=== PATIENT | female | born 1945 | race Caucasian/White ===

== ENCOUNTER → 2024-07-10 16:03 | Outpatient (REF) | payer MEDICARE, OTHER, SELFPAY ==
[2024-07-10 17:19] LABS: % Basophils 0.9 % (0-2); % Immature Granulocytes 0.1 % (0-0.5); % Lymphocytes 16.7 % (20.5-51.1); % Neutrophils 69.3 % (42.2-75.2); Absolute Basophils 0.1 10^3/uL (0-0.2); Absolute Eosinophils 0.4 10^3/uL (0-0.7); Absolute Lymphocytes 1.2 10^3/uL (1.2-3.4); Absolute Monocytes 0.6 10^3/uL (0.1-0.6); Absolute Neutrophils 4.8 10^3/uL (1.4-6.5); Hematocrit 38.4 % (37.0-47.0); Mean Corp Hgb Conc. 31.3 g/dL (33.0-37.0); Mean Corpuscular Hgb 30.8 pg (27.0-31.0); Mean Corpuscular Volume 98.5 fL (81.0-99.0); Mean Platelet Volume 9.4 fL (7.4-10.4); Nucleated Red Blood Cells % 0 %; Platelet Count 254 10^3/uL (130-400); Red Cell Dist. Width 12.9 % (11.5-14.5)
== END ==
LOC: CLAB 16:03
PROVIDERS: ATTENDING PHYSICIAN Student in an Organized Health Care Education/Training Program
DX: K92.1 Melena (principal)
CPT/HCPCS: 36415; 85025

== ENCOUNTER 2024-07-20 07:55 | Emergency (ER) | payer MEDICARE, OTHER, SELFPAY ==
[2024-07-20 07:57] VITALS: BP 121/73
[2024-07-20 08:23] LABS: % Basophils 0.7 % (0-2); % Eosinophils 4.9 % (0-6); % Immature Granulocytes 0.1 % (0-0.5); % Lymphocytes 16.5 % (20.5-51.1); % Neutrophils 68.8 % (42.2-75.2); Absolute Basophils 0.1 10^3/uL (0-0.2); Absolute Eosinophils 0.3 10^3/uL (0-0.7); Absolute Lymphocytes 1.1 10^3/uL (1.2-3.4); Absolute Monocytes 0.6 10^3/uL (0.1-0.6); Absolute Neutrophils 4.6 10^3/uL (1.4-6.5); Hematocrit 33.8 % (37.0-47.0); Mean Corp Hgb Conc. 32.5 g/dL (33.0-37.0); Mean Corpuscular Hgb 30.9 pg (27.0-31.0); Mean Corpuscular Volume 94.9 fL (81.0-99.0); Nucleated Red Blood Cells % 0 %; Platelet Count 186 10^3/uL (130-400); Red Blood Cell Count 3.56 10^6/uL (4.20-5.40); Red Cell Dist. Width 12.5 % (11.5-14.5); White Blood Cell Count 6.7 10^3/uL (4.8-10.8)
--- NOTE | 2024-07-20 08:34 | ED.GENMED ---
History of Present Illness
General
Chief Complaint: Rectal Bleeding
Time Seen by Provider: 07/20/24 08:33
History of Present Illness
History of Present Illness:
TIME OF INITIAL ENCOUNTER:
HPI: Patient presents due to rectal bleeding. BRBPR intermittently for about a week, no longer on aspirin, no anticoagulation, no abd pain. Is scheduled to see GI for an office visit in [place] (reports normal colonoscopy there 5yrs ago; used to
live in [place]). Worse bleeding today. Very well appearing. She does say that she has had a mucoid type of appearance of loose stool.
EXAM:
GENERAL: Well appearing in no distress
HEENT: Moist oral mucosa
CARDIOVASCULAR: No murmurs, normal heart rate, regular rhythm, No chest wall tenderness
PULMONARY: No respiratory distress, breath sounds are clear and equal
ABDOMEN: Soft with no peritoneal signs, no tenderness, nearly empty rectal vault however there is a scant amount of red blood noted that was heme positive, very small external hemorrhoids with no obvious signs of bleeding
NEUROLOGIC: Excellent strength all extremities, no coordination deficits
PSYCHIATRIC: Appropriate mental status, normal insight and judgement
EXTREMITIES: Nontender, no edema, moves all extremities equally
SKIN: No rash, no lesions
NUMBER AND COMPLEXITY OF PROBLEMS ADDRESSED AT THE ENCOUNTER
� Chronic conditions affecting care: High blood pressure, has had bladder sling
� Acute Exacerbation and/or Progression of Chronic Illness: This is an acute but worsening problem
� Differential Diagnosis includes: Internal hemorrhoids, external hemorrhoids, diverticulosis, highly doubt upper GI bleed
AMOUNT AND/OR COMPLEXITY OF DATA TO BE REVIEWED AND ANALYZED
� I performed an independent evaluation of and my interpretation is:
EKG:
CT:
X-rays:
Laboratory Studies: White count 6.7, hemoglobin 11.0, BUN 23, creatinine 1.1
Other:
� Review of other/old records: I reviewed records, hemoglobin on 07/10/2024 was 12.0; had acute appendicitis in February 2022
� Clinical information was obtained by an independent historian: I spoke to the daughter at bedside
� Prescriptions/Medications Considered but not given:
� Further testing considered but not performed: No clear indication for imaging as she has no pain, white count normal
RISK OF COMPLICATIONS AND/OR MORBIDITY OR MORTALITY OF PATIENT MANAGEMENT
� Social determinants of health affecting care:
� Discussion with other providers: I discussed case with Dr. Solis, on-call GI, recommends outpatient management as long as BUN and creatinine are normal.
� Escalation of care including admission/observation vs risk of discharge considered: Stable vitals. Hgb 11.0 (was 12.0 07/10/2024). She was concerned b/c bleeding worsened today, so she came here. The patient has follow-up in
[facility] on 07/31/2024 for an office visit with her GI doctor.
ANY OTHER UPDATES:
Prior to discharge, I reassessed patient. No significant changes or any additional concerns.
Past History
Past History
ED Past Medical History: HTN
ED Past Surgical History: Urological (Bladder sling)
Social History
Tobacco: Non-smoker
Alcohol: Occasional
Personal:
Living: alone
Phy Exam
Physical Exam
Physical Exam:
See HPI
Course
Orders/Labs/Results
Orders:
Orders
07/20/24 08:05
Complete Blood Count/With Diff Urgent
Comprehensive Metabolic Panel Urgent
Abnormal Lab Results
07/20/24
08:05
RBC 3.56 L 10^6/uL
(4.20-5.40)
Hgb 11.0 L g/dL
(12.0-16.0)
Hct 33.8 L %
(37.0-47.0)
MCHC 32.5 L g/dL
(33.0-37.0)
Absolute Lymphs (auto) 1.1 L 10^3/uL
(1.2-3.4)
Lymphocytes % 16.5 L %
(20.5-51.1)
BUN 23 H mg/dl
(7-17)
Creatinine 1.1 H mg/dL
(0.6-1.0)
07/20/24 08:05
07/20/24 08:05
Vital Signs
Initial and Last Documented VS:
Initial Vital Signs
Temp Pulse Resp BP Pulse Ox
36.8 C 76 18 121/73 98
07/20/24 07:57 07/20/24 07:57 07/20/24 07:57 07/20/24 07:57 07/20/24 07:57
Last Documented Vital Signs
Temp Pulse Resp BP Pulse Ox
36.8 C 75 16 124/77 98
07/20/24 07:57 07/20/24 09:13 07/20/24 09:13 07/20/24 09:13 07/20/24 09:13
*Critical Care Note
Total Time (30-74mins, 75-104mins- exclusive of procedures): Not Applicable
ED Attending Note
-
Portions of this chart may have been created with voice recognition software.� Occasional wrong word or��sound alike� substitutions may have occurred due to the inherent limitations of voice recognition software.
Discharge Plan
Departure
Patient Disposition: Home (Routine Discharge)
Date of Disposition: 07/20/24
Time of Disposition: 09:01
Patient with high blood pressure during this ER visit?: Yes
Discharge Problem:
Bright red rectal bleeding
Instructions: Gastrointestinal Bleeding (DC), BLOOD PRESSURE
Prescriptions:
No Action
olmesartan-hydrochlorothiazide [Benicar HCT] 20-12.5 mg Tablet
1 tab PO DAILY
aspirin 81 mg Capsule
81 mg PO DAILY
acetaminophen [acetaminophen] 325 mg tablet
650 mg PO Q4HPRN PRN (Reason: mild pain) Qty: 1 0RF
oxycodone-acetaminophen [oxycodone-acetaminophen] 5-325 mg tablet
1 tab PO Q4HPRN PRN (Reason: moderate to severe pain) Qty: 5 0RF
ibuprofen 200 mg tablet
200 - 400 mg PO Q6HPRN PRN (Reason: moderate pain) Qty: 1 0RF
Referrals:
Karen Solis, DO [Active] - As needed
UNKNOWN - PT DOES,NOT KNOW [Family Provider] -
Activity Restrictions/Additional Instructions:
Your hemoglobin today is normal at 11.0. I discussed case with Dr. Solis, on-call GI. She recommends outpatient follow-up. I have given you her contact information. She also recommends that you have blood work through your primary care doctor
in about a week. Return here if worse or other concerns.
Interventions
Interventions:
*Risk Screen - Suicide Last Done: 07/20/24 07:57
*General Assessment Last Done: 07/20/24 07:57
*Neglect/Abuse Screening Last Done: 07/20/24 07:57
ED- Fall Risk Assessment Last Done: 07/20/24 08:47
*ED COVID-19 Vaccine History Last Done: 07/20/24 08:47
*Nursing Disposition Last Done: 07/20/24 09:13
QJ-Zvdikh-Mnkjpemflp Assessment Last Done: 07/20/24 08:47
ED- Cardiac Assessment Last Done: 07/20/24 08:47
ED- Pulmonary Assessment Last Done: 07/20/24 08:47
Discharge Date and Time
Discharge Date/Time: 07/20/24 09:28
Print Language: LUXEMBOURGER
[2024-07-20 08:37] LABS: ALT (SGPT) 18 U/L (0-35); AST (SGOT) 24 U/L (14-36); Albumin 3.9 g/dl (3.5-5.0); Alkaline Phosphatase 65 U/L (38-126); Blood Urea Nitrogen 23 mg/dl (7-17); Calcium 8.5 mg/dl (8.4-10.2); Carbon Dioxide 29 mmol/L (22-30); Chloride 105 mmol/L (98-107); Glucose 96 mg/dl (70-99); Sodium 142 mmol/L (135-145); Total Bilirubin 0.3 mg/dl (0.2-1.3); Total Protein 6.6 g/dl (6.3-8.2)
[2024-07-20 09:13] VITALS: BP 124/77
== END 2024-07-20 09:28 | disposition home or self-care (01) ==
LOC: EMR 07:55
PROVIDERS: Emergency Medicine; EMERGENCY PHYSICIAN Emergency Medicine
DX: K62.5 Hemorrhage of anus and rectum (principal); I10 Essential (primary) hypertension
CPT/HCPCS: 99283; 80053; 85025

== ENCOUNTER 2024-07-21 17:15 | Emergency (ER) | payer MEDICARE, OTHER, SELFPAY ==
[2024-07-21 17:22] VITALS: BP 156/81
--- NOTE | 2024-07-21 17:22 | ED.GENMED ---
ED Provider Triage
<Orestes Wilkins PA-C - Last Filed: 07/21/24 17:23>
-
Patient seen by provider in Triage?: Seen in Triage
Attestation: A medical screening examination has been initiated by a qualified medical provider. Based on the assessment performed at this time, it has been determined that an emergent medical condition may exist and the patient has been informed
that further medical evaluation and possible additional diagnostic testing may be needed.
HPI: 78-year-old female presenting to the ER for evaluation of stiff neck With this morning around 3 AM. Seen in this emergency department yesterday for GI bleeding. Did not have the stiff neck yesterday while in the ER. Denies any trauma. No
focal weakness or numbness.
GENERAL: Alert , in no apparent distress
EYE: No visual abnormalities.
NECK: Trachea midline
ENT: No visible abnormalities.
LUNGS: No acute respiratory distress
NEUROLOGICAL: Alert and oriented
SKIN: Skin intact. No visible changes.
MUSCULOSKELETAL: Moving extremities normally
PSYCH: Normal and appropriate interaction.
This is a medical evaluation conducted in person to initiate diagnostic evaluation and provide initial therapeutics. Please see further documentation by the treating clinician.
History of Present Illness
<Orestes Wilkins PA-C - Last Filed: 07/21/24 17:23>
General
Chief Complaint: Musculo-Skeletal Complaint
Time Seen by Provider: 07/21/24 22:42
<Josiah Kwon MD - Last Filed: 07/22/24 15:12>
General
Source: patient
Exam Limitations: none
Nursing documentation reviewed up to this point in time: agreed with
History of Present Illness
History of Present Illness:
Patient presents to ED secondary to severe left-sided neck pain rating up to her head, which woke the patient up from sleep last night. Denies blurred vision. Denies dizziness. Denies nausea or vomiting. Denies loss of sensation or weakness.
Denies difficulty with swallowing. Denies recent injury. Of note, couple of days ago, patient did notice 'discomfort' along the left side of her neck. Denies previous history of similar symptoms.
Past History
<Orestes Wilkins PA-C - Last Filed: 07/21/24 17:23>
Past History
ED Past Medical History: HTN
ED Past Surgical History: Urological (Bladder sling)
Social History
Tobacco: Non-smoker
Alcohol: Occasional
Personal:
Living: alone
Review of Systems
<Josiah Kwon MD - Last Filed: 07/22/24 15:12>
Review of Systems
Allergies reviewed?: Yes
All Other Systems: ROS reviewed and negative except as documented in HPI and ROS
Constitutional: Reports no symptoms
ABD/GI: Reports no symptoms
: Reports no symptoms
Musculoskeletal: Reports neck pain; Denies back pain
Skin: Reports no symptoms
Neurological: Reports headache; Denies dizzy, weakness or numbness
Phy Exam
<Josiah Kwon MD - Last Filed: 07/22/24 15:12>
Physical Exam
Physical Exam:
Physical Exam
General: mild painful distress, not acutely ill. afebrile
Head: nc/at. eomi
Neck: supple. no midline tenderness. mild paracervical tenderness, L>R, at level of C6-7
Heart: s1/s2 regular rate and rhythm, no murmur. equal radial pulses.
Lungs: no acute respiratory distress. clear bilaterally
Abdomen: normal bowel sounds. not tender.
Neuro: alert and oriented x 3. no focal neurological deficits. normal speech.
Skin: no rash
Psychiatric: well kept. interactive and cooperative
Extremities: no edema. no calf tenderness
Course
<Orestes Wilkins PA-C - Last Filed: 07/21/24 17:23>
Orders/Labs/Results
Orders:
Orders
07/21/24 21:48
CT Head W/o Iv Contrast Urgent
Comment:
Reason For Exam: headache
Cervical Spine wo Contrast CT [CT Cervical Spine W/o Iv Contr] Urgent
Comment:
Reason For Exam: neck stiffness
07/22/24 00:12
Acetaminophen [Tylenol] 650 mg PO NOW STA
Dexamethasone Pf [Decadron] 10 mg PO NOW STA
Tramadol HCl [Ultram] 50 mg PO NOW STA
Vital Signs
Initial and Last Documented VS:
Initial Vital Signs
Temp Pulse Resp BP Pulse Ox
98.9 F 95 18 156/81 98
07/21/24 17:22 07/21/24 17:22 07/21/24 17:22 07/21/24 17:22 07/21/24 17:22
Last Documented Vital Signs
Temp Pulse Resp BP Pulse Ox
99.7 F 86 18 124/79 97
07/21/24 21:40 07/22/24 00:25 07/22/24 00:25 07/22/24 00:25 07/22/24 00:25
<Josiah Kwon MD - Last Filed: 07/22/24 15:12>
Orders/Labs/Results
Orders:
Orders
07/21/24 21:48
CT Head W/o Iv Contrast Urgent
Comment:
Reason For Exam: headache
Cervical Spine wo Contrast CT [CT Cervical Spine W/o Iv Contr] Urgent
Comment:
Reason For Exam: neck stiffness
07/22/24 00:12
Acetaminophen [Tylenol] 650 mg PO NOW STA
Dexamethasone Pf [Decadron] 10 mg PO NOW STA
Tramadol HCl [Ultram] 50 mg PO NOW STA
Vital Signs
Initial and Last Documented VS:
Initial Vital Signs
Temp Pulse Resp BP Pulse Ox
98.9 F 95 18 156/81 98
07/21/24 17:22 07/21/24 17:22 07/21/24 17:22 07/21/24 17:22 07/21/24 17:22
Last Documented Vital Signs
Temp Pulse Resp BP Pulse Ox
99.7 F 86 18 124/79 97
07/21/24 21:40 07/22/24 00:25 07/22/24 00:25 07/22/24 00:25 07/22/24 00:25
<Josiah Kwon MD - Last Filed: 07/22/24 15:12>
MDM/Problems Addressed
MDM/Problems Addressed:
CT head/cervical spine: No acute findings.
Patient reports improvement in symptoms after treatment. Patient otherwise remains afebrile and neurologically intact. History and exam consistent with likely nonspecific neck pain, likely secondary to cervical nerve impingement with radiation,
and associated spasm. Patient will be discharged home in stable condition, with recommendation to follow-up with PCP for reevaluation, including potential MRI as an outpatient.
<Josiah Kwon MD - Last Filed: 07/22/24 15:12>
*Critical Care Note
Total Time (30-74mins, 75-104mins- exclusive of procedures): Not Applicable
ED Attending Note
<Orestes Wilkins PA-C - Last Filed: 07/21/24 17:23>
-
Portions of this chart may have been created with voice recognition software.� Occasional wrong word or��sound alike� substitutions may have occurred due to the inherent limitations of voice recognition software.
Discharge Plan
Departure
Patient Disposition: Home (Routine Discharge)
Date of Disposition: 07/22/24
Time of Disposition: 00:58
Patient with high blood pressure during this ER visit?: Yes
Discharge Problem:
Cervical radiculopathy at C6
Instructions: Radiculopathy of the neck and back (including sciatica) - Discharge instructions
Prescriptions:
New
methylprednisolone [Medrol (Abhinav)] 4 mg tablets,dose pack
4 mg PO DAILY Qty: 21 0RF
tramadol 50 mg tablet
50 mg PO Q8H PRN (Reason: Pain) Qty: 14 0RF
No Action
olmesartan-hydrochlorothiazide [Benicar HCT] 20-12.5 mg Tablet
1 tab PO DAILY
aspirin 81 mg Capsule
81 mg PO DAILY
acetaminophen [acetaminophen] 325 mg tablet
650 mg PO Q4HPRN PRN (Reason: mild pain) Qty: 1 0RF
oxycodone-acetaminophen [oxycodone-acetaminophen] 5-325 mg tablet
1 tab PO Q4HPRN PRN (Reason: moderate to severe pain) Qty: 5 0RF
ibuprofen 200 mg tablet
200 - 400 mg PO Q6HPRN PRN (Reason: moderate pain) Qty: 1 0RF
Referrals:
Jordyn Clay MD [Family Provider] -
Activity Restrictions/Additional Instructions:
As discussed, please follow-up with your primary care physician for reevaluation, including potential MRI neck as an outpatient, if symptoms persist. In the meantime, please continue to apply warm compress/ice pack to your neck, along with
discussed medications. Your prescription has been sent electronically to [facility] pharmacy in [place].
Interventions
Interventions:
*Risk Screen - Suicide Last Done: 07/21/24 17:22
*General Assessment Last Done: 07/21/24 17:22
*Neglect/Abuse Screening Last Done: 07/21/24 17:22
ED- Fall Risk Assessment Last Done: 07/22/24 01:04
*ED COVID-19 Vaccine History Last Done: 07/21/24 17:22
*Nursing Disposition Last Done: 07/22/24 01:04
ED-Musculoskeletal Assessment Last Done: 07/21/24 21:42
Discharge Date and Time
Discharge Date/Time: 07/22/24 01:04
Print Language: BELARUSIAN
[2024-07-21 21:40] VITALS: BP 147/75
[2024-07-22] MEDS: TYLENOL 650 MG PO (00:22)
[2024-07-22] MEDS: ULTRAM 50 MG PO (00:22)
[2024-07-22] MEDS: DECADRON 10 MG PO (00:23)
[2024-07-22 00:25] VITALS: BP 124/79
== END 2024-07-22 01:04 | disposition home or self-care (01) ==
LOC: EMR 17:15
PROVIDERS: EMERGENCY PHYSICIAN Emergency Medicine; FAMILY PHYSICIAN Student in an Organized Health Care Education/Training Program
DX: M54.12 Radiculopathy, cervical region (principal); M43.6 Torticollis; I10 Essential (primary) hypertension
CPT/HCPCS: 99284; 70450; 72125

== ENCOUNTER 2024-08-08 08:26 | Outpatient (RCR) | payer MEDICARE, OTHER, SELFPAY | END 2024-08-08 23:59 | disposition home or self-care (01) | LOC: RPT 08:26 | PROVIDERS: ATTENDING PHYSICIAN Student in an Organized Health Care Education/Training Program | DX: M54.2 Cervicalgia (principal); Z73.6 Limitation of activities due to disability | CPT/HCPCS: 97110; 97161; 97535 ==

== ENCOUNTER 2024-08-09 11:24 | Emergency (ER) | payer MEDICARE, OTHER, SELFPAY ==
[2024-08-09 11:27] VITALS: BP 142/76
[2024-08-09 11:46] LABS: % Basophils 0.9 % (0-2); % Immature Granulocytes 0.2 % (0-0.5); % Lymphocytes 21.1 % (20.5-51.1); % Monocytes 9.8 % (1.7-9.3); Absolute Eosinophils 0.3 10^3/uL (0-0.7); Absolute Monocytes 0.5 10^3/uL (0.1-0.6); Absolute Neutrophils 2.9 10^3/uL (1.4-6.5); Hematocrit 35.6 % (37.0-47.0); Hemoglobin 11.5 g/dL (12.0-16.0); Mean Corp Hgb Conc. 32.3 g/dL (33.0-37.0); Mean Corpuscular Hgb 30.4 pg (27.0-31.0); Mean Corpuscular Volume 94.2 fL (81.0-99.0); Mean Platelet Volume 8.8 fL (7.4-10.4); Nucleated Red Blood Cells % 0 %; Platelet Count 194 10^3/uL (130-400); Red Blood Cell Count 3.78 10^6/uL (4.20-5.40); Red Cell Dist. Width 13.2 % (11.5-14.5); White Blood Cell Count 4.7 10^3/uL (4.8-10.8)
[2024-08-09 11:56] LABS: INR 1.21; PT 15.8 Sec (11.4-14.6)
[2024-08-09 11:57] LABS: APTT 38.9 Sec (23.4-35.0)
[2024-08-09 12:02] LABS: ALT (SGPT) 17 U/L (0-35); AST (SGOT) 20 U/L (14-36); Albumin 4.4 g/dl (3.5-5.0); Alkaline Phosphatase 73 U/L (38-126); Blood Urea Nitrogen 30 mg/dl (7-17); Calcium 9.1 mg/dl (8.4-10.2); Carbon Dioxide 28 mmol/L (22-30); Chloride 106 mmol/L (98-107); Glucose 97 mg/dl (70-99); Potassium 4.4 mmol/L (3.5-5.1); Sodium 143 mmol/L (135-145); Total Bilirubin 0.5 mg/dl (0.2-1.3); Total Protein 7.1 g/dl (6.3-8.2)
--- NOTE | 2024-08-09 14:51 | ED.GENMED ---
History of Present Illness
General
Chief Complaint: Rectal Bleeding
Source: patient
Time Seen by Provider: 08/09/24 14:09
History of Present Illness
History of Present Illness:
78-year-old female presents to the emergency room complaining of passing bright red blood and some small clots per rectum. Patient has been experiencing these symptoms for the past 3 to 4 weeks. Seems a bit worse now. She was seen in the
emergency room on July 20 and was discharged to follow-up with presumed hemorrhoidal bleeding. Patient followed up with her facial operator in [place] who prescribed hydrocortisone suppositories. Patient feels like this did not help and
may be worse in the symptoms. She comes today for further evaluation. She denies any abdominal pain. She denies any oral anticoagulants
Past History
Past History
ED Past Medical History: HTN
ED Past Surgical History: Urological (Bladder sling)
Social History
Tobacco: Non-smoker
Alcohol: Occasional
Personal:
Living: alone
Phy Exam
Physical Exam
Physical Exam:
General: Awake, Alert, Oriented X3. No acute distress.
Vitals: unremarkable
Head: Atraumatic
Eyes: Pupils equal, EOMI
Throat: Airway intact, no exudates
Neck: Trachea midline
Lungs: Clear and equal b/l
Heart: Regular rate, no murmurs
Abd: Soft, Nontender, No pulsatile mass
Rectal: Empty rectal vault, no blood at this time, external hemorrhoids noted without any active bleeding
Neuro: Nonfocal
Skin: Warm, dry, no rash
Extremities: pulses equal b/l, no edema
Course
Orders/Labs/Results
Orders:
Orders
08/09/24 11:34
Type+Screen Urgent
Complete Blood Count/With Diff Urgent
Comprehensive Metabolic Panel Urgent
PTT Urgent
Prothrombin Time Urgent
08/09/24 11:50
ABO2 Urgent
BBK Wristband Number:
Associate notified that ABO2 has been ordered: [id number]
Date: 08/09/24
Time: 11:50
[employer]
Abnormal Lab Results
08/09/24
11:34
WBC 4.7 L 10^3/uL
(4.8-10.8)
RBC 3.78 L 10^6/uL
(4.20-5.40)
Hgb 11.5 L g/dL
(12.0-16.0)
Hct 35.6 L %
(37.0-47.0)
MCHC 32.3 L g/dL
(33.0-37.0)
Absolute Lymphs (auto) 1.0 L 10^3/uL
(1.2-3.4)
Monocytes % 9.8 H %
(1.7-9.3)
PT 15.8 H Sec
(11.4-14.6)
APTT 38.9 H Sec
(23.4-35.0)
BUN 30 H mg/dl
(7-17)
Creatinine 1.1 H mg/dL
(0.6-1.0)
08/09/24 11:34
08/09/24 11:34
Vital Signs
Initial and Last Documented VS:
Initial Vital Signs
Temp Pulse Resp BP Pulse Ox
97.6 F 82 16 142/76 99
08/09/24 11:08/09/24 11:27 08/09/24 11:08/09/24 11:08/09/24 11:27
Last Documented Vital Signs
Temp Pulse Resp BP Pulse Ox
97.6 F 82 16 142/76 100
08/09/24 11:27 08/09/24 11:27 08/09/24 11:08/09/24 11:27 08/09/24 14:14
MDM/Problems Addressed
Differential Diagnosis Includes:
Lower GI bleeding, hemorrhoidal bleeding, colitis, diverticular bleeding
MDM/Problems Addressed:
Patient presents with rectal bleeding. The overall description sounds most consistent with internal hemorrhoidal bleeding. Hemoglobin is stable and actually higher than a recent visit. Patient has no evidence of hemodynamic instability and no
abdominal discomfort. I believe patient is stable for outpatient follow-up. Communicated with Dr. Ceron who will see the patient in the office. Patient given contact information for Dr. Bell's office and instructed to call in the morning for an
appointment.
*Pulse Oximetry
Patient hypoxic: no
*Critical Care Note
Total Time (30-74mins, 75-104mins- exclusive of procedures): Not Applicable
ED Attending Note
-
Portions of this chart may have been created with voice recognition software.� Occasional wrong word or��sound alike� substitutions may have occurred due to the inherent limitations of voice recognition software.
Discharge Plan
Departure
Patient Disposition: Home (Routine Discharge)
Date of Disposition: 08/09/24
Time of Disposition: 14:55
Patient with high blood pressure during this ER visit?: No
Condition: Good
Discharge Problem:
Bleeding hemorrhoids
Instructions: Hemorrhoids (DC)
Prescriptions:
No Action
olmesartan-hydrochlorothiazide [Benicar HCT] 20-12.5 mg Tablet
1 tab PO DAILY
aspirin 81 mg Capsule
81 mg PO DAILY
acetaminophen [acetaminophen] 325 mg tablet
650 mg PO Q4HPRN PRN (Reason: mild pain) Qty: 1 0RF
oxycodone-acetaminophen [oxycodone-acetaminophen] 5-325 mg tablet
1 tab PO Q4HPRN PRN (Reason: moderate to severe pain) Qty: 5 0RF
ibuprofen 200 mg tablet
200 - 400 mg PO Q6HPRN PRN (Reason: moderate pain) Qty: 1 0RF
methylprednisolone [Medrol (Abhinav)] 4 mg tablets,dose pack
4 mg PO DAILY Qty: 21 0RF
tramadol 50 mg tablet
50 mg PO Q8H PRN (Reason: Pain) Qty: 14 0RF
Referrals:
Trent Ceron MD [Active] -
Jordyn Clay MD [Family Provider] -
Activity Restrictions/Additional Instructions:
Dr. Ceron is a colorectal specialist and this bleeding is something they can help you with. Call office first thing in the morning to schedule an appointment.
Interventions
Interventions:
*Risk Screen - Suicide Last Done: 08/09/24 11:27
*General Assessment Last Done: 08/09/24 11:27
*Neglect/Abuse Screening Last Done: 08/09/24 11:27
ED- Fall Risk Assessment Last Done: 08/09/24 15:30
*ED COVID-19 Vaccine History Last Done: 08/09/24 11:27
*Nursing Disposition Last Done: 08/09/24 15:30
FE-Zrxniv-Orytoswcoa Assessment Last Done: 08/09/24 14:14
ED- Cardiac Assessment Last Done: 08/09/24 14:14
ED- Pulmonary Assessment Last Done: 08/09/24 14:14
Discharge Date and Time
Discharge Date/Time: 08/09/24 15:15
Print Language: NAMIBIAN
== END 2024-08-09 15:15 | disposition home or self-care (01) ==
LOC: EMR 11:24
PROVIDERS: EMERGENCY PHYSICIAN Emergency Medicine; FAMILY PHYSICIAN Student in an Organized Health Care Education/Training Program
DX: K64.9 Unspecified hemorrhoids (principal); I10 Essential (primary) hypertension
CPT/HCPCS: 99283; 80053; 85025; 85610; 85730; 86850; 86900; 86901

== ENCOUNTER 2024-08-15 10:52 | Outpatient (RCR) | payer MEDICARE, OTHER, SELFPAY | END 2024-08-15 23:59 | disposition home or self-care (01) | LOC: RPT 10:52 | PROVIDERS: ATTENDING PHYSICIAN Student in an Organized Health Care Education/Training Program | DX: M54.2 Cervicalgia (principal); Z73.6 Limitation of activities due to disability | CPT/HCPCS: 97110 ==

== ENCOUNTER 2024-08-29 06:12 | Day surgery (SDC) | payer MEDICARE, OTHER, SELFPAY | END 2024-08-29 12:01 | disposition home or self-care (01) | LOC: GI 06:12 | PROVIDERS: ATTENDING PHYSICIAN Surgery | DX: Z12.11 Encounter for screening for malignant neoplasm of colon (principal); K51.50 Left sided colitis without complications; K57.30 Diverticulosis of large intestine without perforation or abscess without bleeding; R10.84 Generalized abdominal pain; R19.4 Change in bowel habit; K62.5 Hemorrhage of anus and rectum; R63.4 Abnormal weight loss; Z80.0 Family history of malignant neoplasm of digestive organs | CPT/HCPCS: 45380; 88305 ==

== ENCOUNTER → 2024-09-11 09:35 | Outpatient (REF) | payer MEDICARE, OTHER, SELFPAY ==
[2024-09-11 11:26] LABS: % Basophils 0.6 % (0-2); % Eosinophils 10.6 % (0-6); % Immature Granulocytes 0.2 % (0-0.5); % Lymphocytes 14.9 % (20.5-51.1); % Monocytes 9.5 % (1.7-9.3); % Neutrophils 64.2 % (42.2-75.2); Absolute Eosinophils 0.6 10^3/uL (0-0.7); Absolute Lymphocytes 0.8 10^3/uL (1.2-3.4); Absolute Monocytes 0.5 10^3/uL (0.1-0.6); Absolute Neutrophils 3.3 10^3/uL (1.4-6.5); Hematocrit 31.4 % (37.0-47.0); Hemoglobin 9.8 g/dL (12.0-16.0); Mean Corp Hgb Conc. 31.2 g/dL (33.0-37.0); Mean Corpuscular Hgb 30.1 pg (27.0-31.0); Mean Corpuscular Volume 96.3 fL (81.0-99.0); Nucleated Red Blood Cells % 0 %; Platelet Count 208 10^3/uL (130-400); Red Blood Cell Count 3.26 10^6/uL (4.20-5.40); Red Cell Dist. Width 13.4 % (11.5-14.5); White Blood Cell Count 5.2 10^3/uL (4.8-10.8)
[2024-09-11 12:11] LABS: ALT (SGPT) 14 U/L (0-35); AST (SGOT) 15 U/L (14-36); Albumin 3.9 g/dl (3.5-5.0); Alkaline Phosphatase 70 U/L (38-126); Blood Urea Nitrogen 32 mg/dl (7-17); Calcium 9.3 mg/dl (8.4-10.2); Carbon Dioxide 28 mmol/L (22-30); Chloride 106 mmol/L (98-107); Glucose 126 mg/dl (70-99); Iron 53 ug/dl (37-170); Potassium 4.5 mmol/L (3.5-5.1); Sodium 142 mmol/L (135-145); Total Bilirubin 0.6 mg/dl (0.2-1.3); Total Protein 6.4 g/dl (6.3-8.2); eGFR 45.76
[2024-09-11 12:20] LABS: Percent Saturation 18 % (20-50); Total Iron Binding Capacity 293 ug/dl (265-497)
[2024-09-11 12:43] LABS: Ferritin 50.2 ng/ml (11.1-264.0)
== END ==
LOC: REG 09:35
PROVIDERS: ATTENDING PHYSICIAN Student in an Organized Health Care Education/Training Program
DX: K62.5 Hemorrhage of anus and rectum (principal); Z00.00 Encounter for general adult medical examination without abnormal findings; I10 Essential (primary) hypertension
CPT/HCPCS: 36415; 80053; 82728; 83540; 83550; 85025

== ENCOUNTER → 2024-09-28 12:41 | Outpatient (REF) | payer MEDICARE, OTHER, SELFPAY ==
[2024-09-28 13:10] LABS: % Basophils 1.1 % (0-2); % Eosinophils 8.7 % (0-6); % Immature Granulocytes 0.1 % (0-0.5); % Lymphocytes 12.4 % (20.5-51.1); % Monocytes 5.7 % (1.7-9.3); Absolute Basophils 0.1 10^3/uL (0-0.2); Absolute Eosinophils 0.8 10^3/uL (0-0.7); Absolute Lymphocytes 1.2 10^3/uL (1.2-3.4); Absolute Monocytes 0.5 10^3/uL (0.1-0.6); Absolute Neutrophils 6.8 10^3/uL (1.4-6.5); Hematocrit 32.8 % (37.0-47.0); Mean Corp Hgb Conc. 30.5 g/dL (33.0-37.0); Mean Corpuscular Hgb 29.5 pg (27.0-31.0); Mean Corpuscular Volume 96.8 fL (81.0-99.0); Mean Platelet Volume 8.5 fL (7.4-10.4); Nucleated Red Blood Cells % 0 %; Platelet Count 257 10^3/uL (130-400); Red Blood Cell Count 3.39 10^6/uL (4.20-5.40); Red Cell Dist. Width 13.4 % (11.5-14.5); White Blood Cell Count 9.4 10^3/uL (4.8-10.8)
[2024-09-28 13:37] LABS: ALT (SGPT) 14 U/L (0-35); AST (SGOT) 17 U/L (14-36); Albumin 4.2 g/dl (3.5-5.0); Alkaline Phosphatase 65 U/L (38-126); Blood Urea Nitrogen 30 mg/dl (7-17); Calcium 9.5 mg/dl (8.4-10.2); Carbon Dioxide 25 mmol/L (22-30); Chloride 104 mmol/L (98-107); Direct Bilirubin 0.2 mg/dl (0.0-0.4); Glucose 105 mg/dl (70-99); Potassium 4.5 mmol/L (3.5-5.1); Sodium 139 mmol/L (135-145); Total Bilirubin 0.5 mg/dl (0.2-1.3); Total Protein 7.1 g/dl (6.3-8.2); eGFR 45.76
== END ==
LOC: REG 12:41
PROVIDERS: ATTENDING PHYSICIAN Internal Medicine Gastroenterology; FAMILY PHYSICIAN Student in an Organized Health Care Education/Training Program
DX: K51.511 Left sided colitis with rectal bleeding (principal)
CPT/HCPCS: 36415; 80053; 82248; 85025; 86140

== ENCOUNTER → 2024-09-29 12:17 | Outpatient (REF) | payer MEDICARE, OTHER, SELFPAY ==
[2024-10-02 16:05] LABS: Calprotectin, Fecal 1470 ug/g (<=49)
== END ==
LOC: OLAB 12:17
PROVIDERS: ATTENDING PHYSICIAN Internal Medicine Gastroenterology
DX: K51.511 Left sided colitis with rectal bleeding (principal)
CPT/HCPCS: 83993

== ENCOUNTER 2024-10-08 11:37 | Outpatient (RCR) | payer MEDICARE, OTHER, SELFPAY ==
[2024-10-08 11:45] VITALS: BP 100/40
[2024-10-08] MEDS: INJECTAFER 265 MG IV (11:57)
[2024-10-08 13:18] VITALS: BP 101/49
== END 2024-10-08 23:59 | disposition home or self-care (01) ==
LOC: OID 11:37
PROVIDERS: ATTENDING PHYSICIAN Internal Medicine
DX: K51.00 Ulcerative (chronic) pancolitis without complications (principal)
CPT/HCPCS: 96365; J1439

== ENCOUNTER 2024-10-17 14:26 | Outpatient (RCR) | payer MEDICARE, OTHER, SELFPAY ==
[2024-10-17] MEDS: INJECTAFER 265 MG IV (14:49)
[2024-10-17 14:54] VITALS: BP 100/58
[2024-10-17 16:00] VITALS: BP 122/57
== END 2024-10-18 10:09 | disposition home or self-care (01) ==
LOC: OID 14:26
PROVIDERS: ATTENDING PHYSICIAN Internal Medicine
DX: K51.00 Ulcerative (chronic) pancolitis without complications (principal)
CPT/HCPCS: 96365; J1439

== ENCOUNTER → 2024-10-31 08:28 | Outpatient (REF) | payer MEDICARE, OTHER, SELFPAY ==
[2024-10-31 10:04] LABS: % Basophils 1.4 % (0-2); % Eosinophils 7.8 % (0-6); % Immature Granulocytes 0.5 % (0-0.5); % Lymphocytes 22.1 % (20.5-51.1); % Monocytes 7.5 % (1.7-9.3); % Neutrophils 60.7 % (42.2-75.2); Absolute Basophils 0.1 10^3/uL (0-0.2); Absolute Eosinophils 0.3 10^3/uL (0-0.7); Absolute Monocytes 0.3 10^3/uL (0.1-0.6); Absolute Neutrophils 2.7 10^3/uL (1.4-6.5); Hematocrit 36.6 % (37.0-47.0); Hemoglobin 11.4 g/dL (12.0-16.0); Mean Corp Hgb Conc. 31.1 g/dL (33.0-37.0); Mean Corpuscular Hgb 30.8 pg (27.0-31.0); Mean Corpuscular Volume 98.9 fL (81.0-99.0); Mean Platelet Volume 8.9 fL (7.4-10.4); Nucleated Red Blood Cells % 0 %; Platelet Count 177 10^3/uL (130-400); Red Cell Dist. Width 14.4 % (11.5-14.5); White Blood Cell Count 4.4 10^3/uL (4.8-10.8)
[2024-10-31 11:10] LABS: Iron 120 ug/dl (37-170)
[2024-10-31 11:19] LABS: Percent Saturation 52 % (20-50); Total Iron Binding Capacity 227 ug/dl (265-497)
== END ==
LOC: REG 08:28
PROVIDERS: ATTENDING PHYSICIAN Student in an Organized Health Care Education/Training Program
DX: D50.0 Iron deficiency anemia secondary to blood loss (chronic) (principal)
CPT/HCPCS: 36415; 82728; 83540; 83550; 85025

== ENCOUNTER → 2025-01-02 08:46 | Outpatient (REF) | payer MEDICARE, OTHER, SELFPAY ==
[2025-01-02 09:33] LABS: Hematocrit 36.4 % (37.0-47.0); Hemoglobin 11.6 g/dL (12.0-16.0); Mean Corp Hgb Conc. 31.9 g/dL (33.0-37.0); Mean Corpuscular Hgb 30.5 pg (27.0-31.0); Mean Corpuscular Volume 95.8 fL (81.0-99.0); Mean Platelet Volume 9.4 fL (7.4-10.4); Platelet Count 145 10^3/uL (130-400); White Blood Cell Count 5.2 10^3/uL (4.8-10.8)
[2025-01-02 10:47] LABS: ALT (SGPT) 49 U/L (0-35); AST (SGOT) 30 U/L (14-36); Albumin 4.1 g/dl (3.5-5.0); Alkaline Phosphatase 68 U/L (38-126); Blood Urea Nitrogen 25 mg/dl (7-17); Calcium 9.4 mg/dl (8.4-10.2); Carbon Dioxide 28 mmol/L (22-30); Chloride 112 mmol/L (98-107); Direct Bilirubin 0.1 mg/dl (0.0-0.4); Glucose 92 mg/dl (70-99); Iron 114 ug/dl (37-170); Potassium 4.9 mmol/L (3.5-5.1); Sodium 146 mmol/L (135-145); Total Bilirubin 0.5 mg/dl (0.2-1.3); Total Protein 6.6 g/dl (6.3-8.2)
[2025-01-02 10:57] LABS: Percent Saturation 51 % (20-50); Total Iron Binding Capacity 223 ug/dl (265-497)
== END ==
LOC: REG 08:46
PROVIDERS: ATTENDING PHYSICIAN Internal Medicine Gastroenterology; FAMILY PHYSICIAN Student in an Organized Health Care Education/Training Program
DX: K51.511 Left sided colitis with rectal bleeding (principal); D50.0 Iron deficiency anemia secondary to blood loss (chronic)
CPT/HCPCS: 36415; 80053; 82248; 82728; 83540; 83550; 85027

== ENCOUNTER → 2025-01-03 07:42 | Outpatient (REF) | payer MEDICARE, OTHER, SELFPAY | LOC: REG 07:42 | PROVIDERS: ATTENDING PHYSICIAN Internal Medicine Gastroenterology; FAMILY PHYSICIAN Student in an Organized Health Care Education/Training Program | DX: K51.511 Left sided colitis with rectal bleeding (principal) | CPT/HCPCS: 83993 ==

== ENCOUNTER → 2025-01-07 09:27 | Outpatient (REF) | payer MEDICARE, OTHER, SELFPAY ==
[2025-01-07 14:28] LABS: ALT (SGPT) 35 U/L (0-35); AST (SGOT) 25 U/L (14-36); Albumin 4.2 g/dl (3.5-5.0); Alkaline Phosphatase 69 U/L (38-126); Direct Bilirubin 0.4 mg/dl (0.0-0.4); Total Bilirubin 0.5 mg/dl (0.2-1.3); Total Protein 6.7 g/dl (6.3-8.2)
[2025-01-10 06:43] LABS: Zinc 66.2 ug/dL (60.0-120.0)
== END ==
LOC: REG 09:27
PROVIDERS: ATTENDING PHYSICIAN Internal Medicine Gastroenterology; FAMILY PHYSICIAN Student in an Organized Health Care Education/Training Program
DX: K92.1 Melena (principal); D64.9 Anemia, unspecified; I10 Essential (primary) hypertension
CPT/HCPCS: 36415; 80076; 82180; 84446; 84590; 84630

== ENCOUNTER → 2025-02-04 16:41 | Outpatient (REF) | payer MEDICARE, OTHER, SELFPAY | LOC: RAD 16:41 | PROVIDERS: ATTENDING PHYSICIAN Physician Assistant; FAMILY PHYSICIAN Student in an Organized Health Care Education/Training Program | DX: R05.3 Chronic cough (principal) | CPT/HCPCS: 71046 ==

== ENCOUNTER → 2025-02-18 08:20 | Outpatient (REF) | payer MEDICARE, OTHER, SELFPAY | LOC: RAD 08:20 | PROVIDERS: ATTENDING PHYSICIAN Student in an Organized Health Care Education/Training Program | DX: J18.9 Pneumonia, unspecified organism (principal) | CPT/HCPCS: 71046 ==

== ENCOUNTER 2025-04-18 06:18 | Day surgery (SDC) | payer MEDICARE, OTHER, SELFPAY | END 2025-04-18 08:31 | disposition home or self-care (01) | LOC: GI 06:18 | PROVIDERS: ATTENDING PHYSICIAN Internal Medicine Gastroenterology; FAMILY PHYSICIAN Student in an Organized Health Care Education/Training Program | DX: K51.50 Left sided colitis without complications (principal); D12.3 Benign neoplasm of transverse colon; K57.30 Diverticulosis of large intestine without perforation or abscess without bleeding; K64.9 Unspecified hemorrhoids | CPT/HCPCS: 45385; 45380; 88305 ==

== ENCOUNTER → 2025-06-01 09:16 | Outpatient (REF) | payer MEDICARE, OTHER, SELFPAY | LOC: REG 09:16 | PROVIDERS: ATTENDING PHYSICIAN Nurse Practitioner Adult Health; FAMILY PHYSICIAN Student in an Organized Health Care Education/Training Program | DX: R05.3 Chronic cough (principal) | CPT/HCPCS: 87070; 87205 ==